=== PATIENT | female | born 1990 | race Caucasian/White ===

== ENCOUNTER 2018-03-04 21:42 | Emergency (ER) | payer SELFPAY ==
[~2018-03-04] VITALS: Ht 152.4 cm; Wt 49.9 kg
[2018-03-04 22:00] VITALS: Ht 152.4 cm; Wt 49.9 kg
[2018-03-04 22:26] LABS: BASOPHIL % 0.2 % (0-2); PLATELET COUNT 317 x10^3mcL (130-400)
[2018-03-04 22:27] LABS: microscopic required? YES; urine erythrocyte 2+ (NEGATIVE)
[2018-03-04 22:30] LABS: RED CELL DISTRIBUTION WIDTH 26.2 % (11.5-14.5)
[2018-03-04 22:47] LABS: ovalocyte/elliptocyte 1+; rbc morphology (normal/abnorm) ABNORMAL (NORMAL); target cell (codocyte) 1+
[2018-03-05 00:29] VITALS: BP 106/69
== END 2018-03-05 00:29 | disposition home or self-care (01) ==
LOC: ED 21:42
PROVIDERS: Emergency Medicine
DX: O20.0 Threatened abortion (principal); Z3A.08 8 weeks gestation of pregnancy
CPT/HCPCS: 36415

== ENCOUNTER 2018-03-18 19:45 | Emergency (ER) | payer SELFPAY ==
[~2018-03-18] VITALS: Ht 154.9 cm; Wt 49.4 kg
[2018-03-18 19:57] VITALS: Ht 154.9 cm; Wt 49.4 kg
[2018-03-18 22:13] VITALS: BP 122/56
== END 2018-03-18 22:13 | disposition home or self-care (01) ==
LOC: ED 19:45
DX: O26.891 Other specified pregnancy related conditions, first trimester (principal); R51 Headache; Z3A.12 12 weeks gestation of pregnancy
CPT/HCPCS: Q0162; Q0163